=== PATIENT | female | born 1965 | race Caucasian/White ===

== ENCOUNTER → 2020-03-11 | Outpatient (CLI) | payer OTHER ==
[~2020-03-11] MED LIST: CHLO25 PO; Pepcid40 MG PO; Zithromax250 MG PO
[2020-03-13 14:11] LABS: HPV 16 Negative (Negative); HPV 18 Negative (Negative); HPV OTHER HR TYPES Negative (Negative)
== END ==
LOC: LAB SHORT 14:54 → LAB 14:54
PROVIDERS: Nurse Practitioner Family
DX: Z12.4 Encounter for screening for malignant neoplasm of cervix (principal)
CPT/HCPCS: 87624; G0123

== ENCOUNTER 2021-09-03 06:31 | Emergency (ER) | payer OTHER ==
[~2021-09-03] VITALS: Ht 154.9 cm; Wt 59.0 kg
[2021-09-03] MEDS ORDERED: IBUP800 PO (07:55)
[2021-09-03] MEDS ORDERED: HYDR1TAB94 PO (07:55)
== END 2021-09-03 08:35 | disposition home or self-care (01) ==
LOC: ER 06:31
DX: S52.502A Unspecified fracture of the lower end of left radius, initial encounter for closed fracture (principal); J44.9 Chronic obstructive pulmonary disease, unspecified; F17.200 Nicotine dependence, unspecified, uncomplicated; W19.XXXA Unspecified fall, initial encounter
CPT/HCPCS: 29125; 73110; 99283-25; A9270